=== PATIENT | female | born 1940 | race Caucasian/White ===

== ENCOUNTER 2024-02-16 12:15 | Inpatient (IN) | payer OTHER ==
[2024-02-16] MEDS ORDERED: VANCOMYCIN 1 GRAM (PRE-DOCKED) 1,000 MG/250 ML BAG IVPB ONE (13:37)
[2024-02-16] MEDS ORDERED: PIPERACILLIN/TAZOB 4.5 GM 4.5 GM/100 ML BAG IVPB ONE (13:37)
[2024-02-16] MEDS: PIPERACILLIN/TAZOB 4.5 GM 4.5 GM in DEXTROSE 5%-WATER 100 ML IVPB ONE (13:51)
[2024-02-16 13:53] LABS: BASO % 0.2 % (0-2.0); HEMATOCRIT 31.7 % (32.4-45.2); HEMOGLOBIN 10.5 GM/dL (10.7-15.3); LYMPH % 10.7 % (8-40); MCH 31.2 pg (25.7-33.7); MCHC 33.2 g/dl (32.0-36.0); MEAN CELL VOLUME 94.1 fl (80-96); MEAN PLT VOLUME 7.7 fl (7.5-11.1); MONO % 17.1 % (3.8-10.2); PLATELET COUNT 211 10^3/uL (134-434); RBC 3.36 M/mm3 (3.60-5.2); RDW 15.1 % (11.6-15.6); VENOUS BASE EXCESS 3.7 mmol/L (-2-2); VENOUS O2 SATURATION 63.8 % (70-80); VENOUS PCO2 43.7 mmHg (38-52); VENOUS PH 7.431 (7.310-7.410)
[2024-02-16 14:14] LABS: CHLORIDE 107 mmol/L (98-107); POTASSIUM 4.7 mmol/L (3.5-5.1); SODIUM 139 mmol/L (136-145)
[2024-02-16 14:16] LABS: CALCIUM 9.4 mg/dL (8.5-10.1)
[2024-02-16 14:17] LABS: ANION GAP 5 mmol/L (4-13); BLOOD UREA NITROGEN 25.6 mg/dL (7-18); CO2 28 mmol/L (21-32); GLUCOSE,RANDOM 122 mg/dL (74-106)
[2024-02-16 14:20] LABS: BILIRUBIN,TOTAL 0.3 mg/dL (0.2-1); CREATININE 0.5 mg/dL (0.55-1.3); SGOT/AST 12 U/L (15-37); SGPT/ALT < 6 U/L (13-61)
[2024-02-16 14:21] LABS: ALBUMIN 2.3 g/dl (3.4-5.0)
[2024-02-16 14:22] LABS: ALK PHOS 46 U/L (45-117); TOT PROT 6.8 g/dl (6.4-8.2)
[2024-02-16] MEDS: VANCOMYCIN 1,000 MG in DEXTROSE 5%-WATER - 250 ML IVPB ONE (15:28)
[2024-02-16] MEDS ORDERED: ACETAMINOPHEN 325 MG TABLET (FP) PO PRN (16:43)
[2024-02-16] MEDS ORDERED: ONDANSETRON *ODT* 4 MG TABLET SL PRN (16:43)
[2024-02-16] MEDS ORDERED: PIPERACILLIN/TAZOB 2.25 GM 2.25 GM in DEXTROSE 5%-WATER - 50 ML IVPB SCH (21:00)
[2024-02-16] MEDS: APIXABAN 2.5 MG TABLET PO SCH (21:34)
[2024-02-16] MEDS: CARBIDOPA/LEVODOPA 25/100 TABLET (FP) PO SCH (21:34)
[2024-02-16] MEDS: DIVALPROEX SODIUM 250 MG TABLET E.C. PO SCH (21:34)
[2024-02-16] MEDS: PIPERACILLIN/TAZOB 2.25 GM 2.25 GM/50 ML BAG IVPB SCH (21:35)
[2024-02-16] MEDS: MONTELUKAST NA 10 MG TABLET PO SCH (21:35)
[2024-02-16] MEDS: FLUoxetine HCL 20 MG CAPSULE PO SCH (21:35)
[2024-02-16] MEDS: INSULIN ASPART SLIDING SCALE (NOVOLOG) 1 VIAL SQ SCH (21:42)
[2024-02-16] MEDS ORDERED: [UNRECOGNIZED DRUG - OTHER] PO SCH (22:00)
[2024-02-17 08:10] LABS: INR 1.36 (0.83-1.09); PROTHROMBIN TIME (PATIENT) 15.2 SEC (9.7-13.0)
[2024-02-17 08:12] LABS: BASO % 0.2 % (0-2.0); EOS % 0.1 % (0-4.5); HEMATOCRIT 31.8 % (32.4-45.2); HEMOGLOBIN 10.6 GM/dL (10.7-15.3); LYMPH % 12.9 % (8-40); MCH 31.5 pg (25.7-33.7); MCHC 33.3 g/dl (32.0-36.0); MEAN CELL VOLUME 94.8 fl (80-96); MEAN PLT VOLUME 8.3 fl (7.5-11.1); MONO % 12.2 % (3.8-10.2); NEUT % 74.6 % (42.8-82.8); PLATELET COUNT 245 10^3/uL (134-434); RBC 3.36 M/mm3 (3.60-5.2); RDW 14.8 % (11.6-15.6); WHITE BLOOD COUNT 15.2 K/mm3 (4.0-10.0)
[2024-02-17 08:20] LABS: CHLORIDE 106 mmol/L (98-107); POTASSIUM 4.3 mmol/L (3.5-5.1); SODIUM 139 mmol/L (136-145)
[2024-02-17 08:22] LABS: CALCIUM 9.8 mg/dL (8.5-10.1)
[2024-02-17 08:23] LABS: ALBUMIN 2.3 g/dl (3.4-5.0); ANION GAP 8 mmol/L (4-13); BLOOD UREA NITROGEN 20.8 mg/dL (7-18); CO2 25 mmol/L (21-32); GLUCOSE,RANDOM 114 mg/dL (74-106); MAGNESIUM 1.9 mg/dL (1.8-2.4)
[2024-02-17 08:26] LABS: CREATININE 0.5 mg/dL (0.55-1.3); PHOSPHOROUS 2.6 mg/dL (2.5-4.9); SGOT/AST 6 U/L (15-37); SGPT/ALT < 6 U/L (13-61)
[2024-02-17 08:28] LABS: TOT PROT 7.2 g/dl (6.4-8.2)
[2024-02-17 08:29] LABS: ALK PHOS 46 U/L (45-117)
[2024-02-17] MEDS: LOSARTAN POTASSIUM 50 MG TABLET PO SCH (09:15)
[2024-02-17] MEDS: ASCORBIC ACID 500 MG TABLET (FP) PO SCH (09:15)
[2024-02-17] MEDS: PANTOPRAZOLE 40 MG TABLET PO SCH (09:15)
[2024-02-17] MEDS: HYDROCHLOROTHIAZIDE 12.5 MG CAPSULE (FP) PO SCH (09:15)
[2024-02-17] MEDS ORDERED: ENOXAPARIN NA (PORCINE) 40 MG/0.4 ML DISP.SYRIN SQ SCH (10:00)
[2024-02-17] MEDS: DIVALPROEX SODIUM 125 MG SPRINKLE CAPS PO SCH (11:45)
[2024-02-17] MEDS: LACTATED RINGERS SOLUTION 1,000 ML/1,000 ML INFUS.BAG IV SCH (12:51)
[2024-02-17] MEDS ORDERED: VANCOMYCIN 1 GM PREMIX - 1 GM/200 ML BAG IVPB SCH (15:00)
[2024-02-17] MEDS: VANCOMYCIN/WATER FOR INJ (PEG) 1 GM/200 ML BAG IVPB SCH (15:13)
[2024-02-18] MEDS: PIPERACILLIN/TAZOB 2.25 GM 2.25 GM/50 ML BAG IVPB SCH (01:43)
[2024-02-18 08:07] LABS: EPI CELLS 13 /uL (0-25.1); HYALINE CASTS 1 /uL (0-3.1); PH,URINE 5.5 (5.0-8.0); URINE APPEARANCE CLEAR; URINE BACTERIA 666 /uL (0-1359); URINE BILIRUBIN NEGATIVE (NEGATIVE); URINE COLOR DK YELLOW; URINE GLUCOSE (UA) NEGATIVE (NEGATIVE); URINE KETONE TRACE (NEGATIVE); URINE LEUK ESTERASE 3+ (NEGATIVE); URINE NITRITE NEGATIVE (NEGATIVE); URINE PROTEIN NEGATIVE (NEGATIVE); URINE WBC 342 /uL (0-25.8)
[2024-02-18 08:15] LABS: URINE RBC 24 /uL (0-23.9)
[2024-02-18 08:53] LABS: BASO % 0.2 % (0-2.0); HEMATOCRIT 30.6 % (32.4-45.2); HEMOGLOBIN 10.1 GM/dL (10.7-15.3); LYMPH % 10.6 % (8-40); MCH 31.6 pg (25.7-33.7); MEAN CELL VOLUME 95.9 fl (80-96); MEAN PLT VOLUME 7.7 fl (7.5-11.1); MONO % 11.6 % (3.8-10.2); NEUT % 77.6 % (42.8-82.8); PLATELET COUNT 213 10^3/uL (134-434); RBC 3.19 M/mm3 (3.60-5.2); RDW 14.8 % (11.6-15.6); WHITE BLOOD COUNT 13.9 K/mm3 (4.0-10.0)
[2024-02-18 09:12] LABS: POTASSIUM 4.4 mmol/L (3.5-5.1)
[2024-02-18 09:14] LABS: BLOOD UREA NITROGEN 19.7 mg/dL (7-18); CALCIUM 9.5 mg/dL (8.5-10.1)
[2024-02-18 09:17] LABS: CREATININE 0.6 mg/dL (0.55-1.3)
[2024-02-18 12:54] VITALS: BMI 16.9
[2024-02-18] MEDS ORDERED: ERTAPENEM SODIUM 0.5 GM in SODIUM CHLORIDE 50 ML IVPB SCH (13:00)
[2024-02-18] MEDS: ERTAPENEM SODIUM 0.5 GM in SODIUM CHLORIDE 50 ML IVPB SCH (13:07)
[2024-02-18] MEDS: LACTATED RINGERS SOLUTION 1,000 ML/1,000 ML INFUS.BAG IV SCH (14:30)
[2024-02-19] MEDS: AMINO ACIDS/PROTEIN HYDROLYS 30 ML LIQUID.PKT PO SCH (08:49)
[2024-02-19 09:58] LABS: BASO % 0.1 % (0-2.0); EOS % 0.1 % (0-4.5); LYMPH % 9.6 % (8-40); MCH 31.2 pg (25.7-33.7); MCHC 33.2 g/dl (32.0-36.0); MEAN CELL VOLUME 93.9 fl (80-96); MEAN PLT VOLUME 7.9 fl (7.5-11.1); MONO % 16.8 % (3.8-10.2); NEUT % 73.4 % (42.8-82.8); PLATELET COUNT 244 10^3/uL (134-434); WHITE BLOOD COUNT 13.9 K/mm3 (4.0-10.0)
[2024-02-19 10:14] LABS: CHLORIDE 106 mmol/L (98-107); POTASSIUM 4.8 mmol/L (3.5-5.1); SODIUM 138 mmol/L (136-145)
[2024-02-19 10:17] LABS: ALBUMIN 1.9 g/dl (3.4-5.0); CALCIUM 9.4 mg/dL (8.5-10.1)
[2024-02-19 10:18] LABS: ANION GAP 4 mmol/L (4-13); BLOOD UREA NITROGEN 16.1 mg/dL (7-18); CO2 29 mmol/L (21-32); MAGNESIUM 1.8 mg/dL (1.8-2.4)
[2024-02-19 10:21] LABS: CREATININE 0.4 mg/dL (0.55-1.3); PHOSPHOROUS 2.2 mg/dL (2.5-4.9)
[2024-02-19 10:23] LABS: ALK PHOS 36 U/L (45-117); BILIRUBIN,TOTAL 0.2 mg/dL (0.2-1); TOT PROT 5.9 g/dl (6.4-8.2)
[2024-02-19 10:40] LABS: GLUCOSE,RANDOM 81 mg/dL (74-106)
[2024-02-19 10:43] LABS: SGOT/AST 5 U/L (15-37); SGPT/ALT < 6 U/L (13-61)
[2024-02-19] MEDS: MULTIVITAMINS (DAILY MVI) TABLET (FP) PO SCH (10:57)
[2024-02-19] MEDS: NAPH,MB-DB/K PH,MBDB POWDER PACKET PO ONE (16:47)
[2024-02-20 09:16] LABS: BASO % 0.1 % (0-2.0); EOS % 0.6 % (0-4.5); HEMATOCRIT 29.1 % (32.4-45.2); HEMOGLOBIN 9.7 GM/dL (10.7-15.3); LYMPH % 13.9 % (8-40); MCH 31.4 pg (25.7-33.7); MCHC 33.3 g/dl (32.0-36.0); MEAN CELL VOLUME 94.5 fl (80-96); MEAN PLT VOLUME 7.6 fl (7.5-11.1); MONO % 15.2 % (3.8-10.2); NEUT % 70.2 % (42.8-82.8); PLATELET COUNT 246 10^3/uL (134-434); RBC 3.08 M/mm3 (3.60-5.2); RDW 14.9 % (11.6-15.6); WHITE BLOOD COUNT 9.6 K/mm3 (4.0-10.0)
[2024-02-20 09:38] LABS: CHLORIDE 106 mmol/L (98-107); POTASSIUM 4.4 mmol/L (3.5-5.1); SODIUM 141 mmol/L (136-145)
[2024-02-20 09:40] LABS: ALBUMIN 1.7 g/dl (3.4-5.0)
[2024-02-20 09:41] LABS: ANION GAP 4 mmol/L (4-13); BLOOD UREA NITROGEN 12.7 mg/dL (7-18); CO2 30 mmol/L (21-32); GLUCOSE,RANDOM 85 mg/dL (74-106); MAGNESIUM 1.7 mg/dL (1.8-2.4)
[2024-02-20 09:43] LABS: SGPT/ALT < 6 U/L (13-61)
[2024-02-20 09:44] LABS: CREATININE 0.3 mg/dL (0.55-1.3); PHOSPHOROUS 2.5 mg/dL (2.5-4.9); SGOT/AST 4 U/L (15-37)
[2024-02-20 09:45] LABS: BILIRUBIN,TOTAL 0.2 mg/dL (0.2-1); TOT PROT 5.3 g/dl (6.4-8.2)
[2024-02-20 09:46] LABS: ALK PHOS 35 U/L (45-117)
[2024-02-20] MEDS: MAGNESIUM 1GM/D5W - 1 GM/100 ML IVPB IVPB ONE (18:27)
[2024-02-21 10:25] LABS: BASO % 0.2 % (0-2.0); EOS % 0.8 % (0-4.5); HEMATOCRIT 28.5 % (32.4-45.2); HEMOGLOBIN 9.5 GM/dL (10.7-15.3); LYMPH % 13.9 % (8-40); MCH 31.2 pg (25.7-33.7); MCHC 33.2 g/dl (32.0-36.0); MEAN PLT VOLUME 7.3 fl (7.5-11.1); MONO % 9.8 % (3.8-10.2); NEUT % 75.3 % (42.8-82.8); PLATELET COUNT 304 10^3/uL (134-434); RBC 3.03 M/mm3 (3.60-5.2); RDW 14.7 % (11.6-15.6); WHITE BLOOD COUNT 9.8 K/mm3 (4.0-10.0)
[2024-02-21 10:52] LABS: CHLORIDE 106 mmol/L (98-107); POTASSIUM 4.4 mmol/L (3.5-5.1); SODIUM 138 mmol/L (136-145)
[2024-02-21 11:02] LABS: ALBUMIN 1.6 g/dl (3.4-5.0); ANION GAP 5 mmol/L (4-13); BLOOD UREA NITROGEN 6.8 mg/dL (7-18); CALCIUM 8.7 mg/dL (8.5-10.1); CO2 28 mmol/L (21-32); MAGNESIUM 1.5 mg/dL (1.8-2.4)
[2024-02-21 11:03] LABS: GLUCOSE,RANDOM 148 mg/dL (74-106)
[2024-02-21 11:05] LABS: CREATININE 0.4 mg/dL (0.55-1.3); PHOSPHOROUS 2.6 mg/dL (2.5-4.9); SGOT/AST 7 U/L (15-37)
[2024-02-21 11:07] LABS: BILIRUBIN,TOTAL 0.2 mg/dL (0.2-1); TOT PROT 5.5 g/dl (6.4-8.2)
[2024-02-21 11:08] LABS: ALK PHOS 40 U/L (45-117)
[2024-02-21 11:28] LABS: SGPT/ALT < 6 U/L (13-61)
[2024-02-21] MEDS: MAGNESIUM 2GM/50ML STERILE WATER IVPB IVPB ONE (11:56)
[2024-02-21] MEDS: MAGNESIUM SULFATE IN WATER 2 GM/50 ML IVPB IVPB ONE (15:13)
[2024-02-21 15:44] VITALS: RESP 18
[2024-02-22] MEDS ORDERED: oxyCODONE HCL 5 MG TABLET PO PRN ×2 (09:28→12:05)
[2024-02-22] MEDS ORDERED: ONDANSETRON 4 MG/2 ML VIAL IVPUSH PRN ×2 (09:28→12:05)
[2024-02-22] MEDS ORDERED: PROPOFOL 20 ML ONE (09:34)
[2024-02-22] MEDS ORDERED: MIDAZOLAM HCL 2 MG/2 ML SINGLE DOSE VIAL ONE (09:34)
[2024-02-22 10:04] LABS: BASO % 0.2 % (0-2.0); EOS % 0.2 % (0-4.5); HEMATOCRIT 30.6 % (32.4-45.2); HEMOGLOBIN 10.3 GM/dL (10.7-15.3); LYMPH % 13.3 % (8-40); MCH 31.5 pg (25.7-33.7); MCHC 33.8 g/dl (32.0-36.0); MEAN CELL VOLUME 93.1 fl (80-96); MEAN PLT VOLUME 7.1 fl (7.5-11.1); MONO % 13.1 % (3.8-10.2); NEUT % 73.2 % (42.8-82.8); PLATELET COUNT 346 10^3/uL (134-434); RBC 3.28 M/mm3 (3.60-5.2); RDW 14.9 % (11.6-15.6); WHITE BLOOD COUNT 12.3 K/mm3 (4.0-10.0)
[2024-02-22 10:06] LABS: INR 1.15 (0.83-1.09); PROTHROMBIN TIME (PATIENT) 13.2 SEC (9.7-13.0)
[2024-02-22] MEDS ORDERED: LIDOCAINE HCL 1%, 10 MG/ML (20ML VIAL) ONE (10:09)
[2024-02-22] MEDS ORDERED: BUPIVACAINE HCL/PF 0.5% (5MG/ML) 10 ML VIAL ONE (10:09)
[2024-02-22 10:24] LABS: CALCIUM 9.4 mg/dL (8.5-10.1); POTASSIUM 4.3 mmol/L (3.5-5.1)
[2024-02-22 10:25] LABS: BLOOD UREA NITROGEN 7.7 mg/dL (7-18); MAGNESIUM 1.9 mg/dL (1.8-2.4)
[2024-02-22 10:28] LABS: CREATININE 0.4 mg/dL (0.55-1.3); PHOSPHOROUS 3.2 mg/dL (2.5-4.9)
[2024-02-22] MEDS: LACTATED RINGERS SOLUTION 1,000 ML IV SCH ×2 (13:05→13:06)
[2024-02-22] MEDS: CARBIDOPA/LEVODOPA 25/100 TABLET (FP) PO SCH (14:32)
[2024-02-22] MEDS: INSULIN ASPART SLIDING SCALE (NOVOLOG) 1 VIAL SQ SCH (17:55)
[2024-02-22] MEDS: FLUoxetine HCL 20 MG CAPSULE PO SCH (21:27)
[2024-02-22] MEDS: DIVALPROEX SODIUM 125 MG SPRINKLE CAPS PO SCH (21:27)
[2024-02-22] MEDS: MONTELUKAST NA 10 MG TABLET PO SCH (21:27)
[2024-02-23] MEDS: ACETAMINOPHEN 325 MG TABLET (FP) PO PRN (03:59)
[2024-02-23] MEDS ORDERED: AMINO ACIDS/PROTEIN HYDROLYS 30 ML LIQUID.PKT PO SCH (08:00)
[2024-02-23 10:05] LABS: BASO % 0.3 % (0-2.0); EOS % 0.1 % (0-4.5); HEMATOCRIT 27.5 % (32.4-45.2); HEMOGLOBIN 8.9 GM/dL (10.7-15.3); LYMPH % 11.8 % (8-40); MCH 30.6 pg (25.7-33.7); MCHC 32.3 g/dl (32.0-36.0); MEAN CELL VOLUME 94.6 fl (80-96); MEAN PLT VOLUME 7.2 fl (7.5-11.1); MONO % 12.6 % (3.8-10.2); NEUT % 75.2 % (42.8-82.8); PLATELET COUNT 306 10^3/uL (134-434); RBC 2.91 M/mm3 (3.60-5.2); RDW 14.8 % (11.6-15.6); WHITE BLOOD COUNT 15.8 K/mm3 (4.0-10.0)
[2024-02-23] MEDS: APIXABAN 2.5 MG TABLET PO SCH (10:10)
[2024-02-23] MEDS: LOSARTAN POTASSIUM 50 MG TABLET PO SCH (10:10)
[2024-02-23] MEDS: ASCORBIC ACID 500 MG TABLET (FP) PO SCH (10:10)
[2024-02-23] MEDS: ZINC SULFATE 220 MG CAPSULE (FP) PO SCH (10:10)
[2024-02-23] MEDS: PANTOPRAZOLE 40 MG TABLET PO SCH (10:10)
[2024-02-23] MEDS: MULTIVITAMINS (DAILY MVI) TABLET (FP) PO SCH (10:11)
[2024-02-23] MEDS: AMINO ACIDS/PROTEIN HYDROLYS 30 ML LIQUID.PKT PO SCH (10:11)
[2024-02-23] MEDS: HYDROCHLOROTHIAZIDE 12.5 MG CAPSULE (FP) PO SCH (10:11)
[2024-02-23 10:32] LABS: CHLORIDE 106 mmol/L (98-107); POTASSIUM 4.1 mmol/L (3.5-5.1); SODIUM 139 mmol/L (136-145)
[2024-02-23 10:35] LABS: CALCIUM 8.7 mg/dL (8.5-10.1)
[2024-02-23 10:36] LABS: ALBUMIN 1.7 g/dl (3.4-5.0); ANION GAP 3 mmol/L (4-13); BLOOD UREA NITROGEN 9.4 mg/dL (7-18); CO2 29 mmol/L (21-32); GLUCOSE,RANDOM 111 mg/dL (74-106); MAGNESIUM 1.6 mg/dL (1.8-2.4)
[2024-02-23 10:39] LABS: CREATININE 0.5 mg/dL (0.55-1.3); PHOSPHOROUS 2.9 mg/dL (2.5-4.9); SGOT/AST 9 U/L (15-37)
[2024-02-23 10:40] LABS: BILIRUBIN,TOTAL 0.3 mg/dL (0.2-1); TOT PROT 5.5 g/dl (6.4-8.2)
[2024-02-23 10:42] LABS: ALK PHOS 40 U/L (45-117)
[2024-02-23 10:49] LABS: SGPT/ALT < 6 U/L (13-61)
[2024-02-23] MEDS: ERTAPENEM SODIUM 0.5 GM in SODIUM CHLORIDE 50 ML IVPB SCH (11:40)
[2024-02-23] MEDS: MAGNESIUM 2GM/50ML STERILE WATER IVPB IVPB ONE (16:05)
[2024-02-24] MEDS: SODIUM CHLORIDE 500 ML IV STA (06:52)
[2024-02-24 09:51] LABS: BASO % 0.3 % (0-2.0); EOS % 0.1 % (0-4.5); HEMATOCRIT 25.3 % (32.4-45.2); HEMOGLOBIN 8.5 GM/dL (10.7-15.3); LYMPH % 11.7 % (8-40); MCH 31.5 pg (25.7-33.7); MCHC 33.4 g/dl (32.0-36.0); MEAN CELL VOLUME 94.2 fl (80-96); MEAN PLT VOLUME 7.2 fl (7.5-11.1); MONO % 11.4 % (3.8-10.2); NEUT % 76.5 % (42.8-82.8); PLATELET COUNT 283 10^3/uL (134-434); RBC 2.69 M/mm3 (3.60-5.2); RDW 14.8 % (11.6-15.6); WHITE BLOOD COUNT 16.5 K/mm3 (4.0-10.0)
[2024-02-24 10:03] LABS: CHLORIDE 109 mmol/L (98-107); POTASSIUM 4.2 mmol/L (3.5-5.1); SODIUM 140 mmol/L (136-145)
[2024-02-24 10:05] LABS: ALBUMIN 1.5 g/dl (3.4-5.0); CALCIUM 8.1 mg/dL (8.5-10.1)
[2024-02-24 10:06] LABS: ANION GAP 4 mmol/L (4-13); BLOOD UREA NITROGEN 17.3 mg/dL (7-18); CO2 27 mmol/L (21-32); GLUCOSE,RANDOM 114 mg/dL (74-106); MAGNESIUM 1.9 mg/dL (1.8-2.4)
[2024-02-24 10:09] LABS: CREATININE 0.5 mg/dL (0.55-1.3); SGOT/AST 10 U/L (15-37)
[2024-02-24 10:10] LABS: BILIRUBIN,TOTAL 0.3 mg/dL (0.2-1); PHOSPHOROUS 3.1 mg/dL (2.5-4.9)
[2024-02-24 10:11] LABS: ALK PHOS 38 U/L (45-117)
[2024-02-24 10:17] LABS: SGPT/ALT < 6 U/L (13-61)
[2024-02-25 09:20] LABS: BASO % 0.3 % (0-2.0); HEMATOCRIT 23.6 % (32.4-45.2); HEMOGLOBIN 7.9 GM/dL (10.7-15.3); LYMPH % 18.1 % (8-40); MCH 31.2 pg (25.7-33.7); MCHC 33.3 g/dl (32.0-36.0); MEAN CELL VOLUME 93.7 fl (80-96); MEAN PLT VOLUME 7.2 fl (7.5-11.1); MONO % 11.1 % (3.8-10.2); NEUT % 69.5 % (42.8-82.8); PLATELET COUNT 274 10^3/uL (134-434); RBC 2.52 M/mm3 (3.60-5.2); RDW 14.8 % (11.6-15.6); WHITE BLOOD COUNT 10.8 K/mm3 (4.0-10.0)
[2024-02-25 10:14] LABS: CHLORIDE 108 mmol/L (98-107); POTASSIUM 4.5 mmol/L (3.5-5.1); SODIUM 139 mmol/L (136-145)
[2024-02-25 10:17] LABS: CALCIUM 8.4 mg/dL (8.5-10.1)
[2024-02-25 10:18] LABS: ALBUMIN 1.4 g/dl (3.4-5.0); ANION GAP 2 mmol/L (4-13); BLOOD UREA NITROGEN 18.7 mg/dL (7-18); CO2 29 mmol/L (21-32); GLUCOSE,RANDOM 80 mg/dL (74-106); MAGNESIUM 1.7 mg/dL (1.8-2.4)
[2024-02-25 10:21] LABS: CREATININE 0.5 mg/dL (0.55-1.3); PHOSPHOROUS 2.9 mg/dL (2.5-4.9); SGOT/AST 8 U/L (15-37); SGPT/ALT < 6 U/L (13-61)
[2024-02-25 10:22] LABS: BILIRUBIN,TOTAL 0.3 mg/dL (0.2-1); TOT PROT 4.8 g/dl (6.4-8.2)
[2024-02-25 10:24] LABS: ALK PHOS 37 U/L (45-117)
[2024-02-25] MEDS: metroNIDAZOLE 250 MG TABLET PO SCH (10:35)
[2024-02-26 13:17] LABS: BASO % 0.2 % (0-2.0); EOS % 0.4 % (0-4.5); HEMATOCRIT 25.7 % (32.4-45.2); HEMOGLOBIN 8.7 GM/dL (10.7-15.3); LYMPH % 10.9 % (8-40); MCH 31.5 pg (25.7-33.7); MCHC 33.8 g/dl (32.0-36.0); MEAN CELL VOLUME 93.3 fl (80-96); MEAN PLT VOLUME 7.5 fl (7.5-11.1); MONO % 13.5 % (3.8-10.2); PLATELET COUNT 317 10^3/uL (134-434); RBC 2.76 M/mm3 (3.60-5.2); RDW 15.1 % (11.6-15.6); WHITE BLOOD COUNT 10.6 K/mm3 (4.0-10.0)
[2024-02-26 13:30] LABS: POTASSIUM 4.4 mmol/L (3.5-5.1)
[2024-02-26 13:33] LABS: BLOOD UREA NITROGEN 20.2 mg/dL (7-18); CALCIUM 8.7 mg/dL (8.5-10.1)
[2024-02-26 13:37] LABS: CREATININE 0.5 mg/dL (0.55-1.3)
[2024-02-26 15:07] VITALS: BP 106/47; PULSE 99; TEMP 98.6
== END 2024-02-26 16:10 | disposition home or self-care (01) | DRG 579 ==
LOC: JER 12:15 → JERBED 15:33 → J6S 17:22
PROVIDERS: ADMIT Internal Medicine; ATTEND Internal Medicine
PROC: 0KBP0ZZ Excision of Left Hip Muscle, Open Approach (ICD-10-PCS; principal; 2024-02-23)
PROC: 0KBN0ZZ Excision of Right Hip Muscle, Open Approach (ICD-10-PCS; 2024-02-23)
DX: L89.150 Pressure ulcer of sacral region, unstageable (principal); E43 Unspecified severe protein-calorie malnutrition; R53.2 Functional quadriplegia; Z68.1 Body mass index [BMI] 19.9 or less, adult; I10 Essential (primary) hypertension; G30.9 Alzheimer's disease, unspecified; F02.80 Dementia in other diseases classified elsewhere, unspecified severity, without behavioral disturbance, psychotic disturbance, mood disturbance, and anxiety; G20.A1 Parkinson's disease without dyskinesia, without mention of fluctuations; E11.9 Type 2 diabetes mellitus without complications; J44.9 Chronic obstructive pulmonary disease, unspecified; R05.3 Chronic cough; D72.829 Elevated white blood cell count, unspecified; Z86.718 Personal history of other venous thrombosis and embolism; D63.8 Anemia in other chronic diseases classified elsewhere; F32.A Depression, unspecified
CPT/HCPCS: 0241U-QW; 36415; 71045-TC-FY; 72193-TC; 80048; 80053; 81003; 82607; 82728; 82746; 82803; 82962; 83036; 83540; 83550; 83735; 84100; 84484; 85025; 85045; 85610; 86850; 86900; 86901; 87040; 87070; 87076; 87086; 87186; 87205; 88304-TC; 93005; 93010; 99285-25; Q9967